=== PATIENT | male | born 1980 | race American Indian/Alaskan Native ===

== ENCOUNTER 2023-05-07 13:27 | Emergency (ER) | payer MEDICAID ==
[~2023-05-07] VITALS: Ht 180.3 cm; Wt 81.6 kg
[2023-05-07 13:29] VITALS: BP 131/79; PULSE 74; RESP 16; TEMP 97.7; O2SAT 97
--- NOTE | 2023-05-07 14:35 | NUR ---
Enedina, substance abuse coordinator at bedside.
[2023-05-07] MEDS ORDERED: BUPR1FIL3 SL ×2 (14:37→14:49)
--- NOTE | 2023-05-07 14:37 | NUR ---
Met with patient in regards to Suboxone. Patient has been clean for 9 months, using Suboxone and moved up here and needs to establish with provider. Meagan will write RX for a week and I gave patient a card to call [facility] to continue Suboxone. If patient can't get in within that time I told him to come back to ER. Patient has my card to call me with any questions.
[2023-05-07] MEDS ORDERED: GABA800T11 PO (14:51)
[2023-05-07] MEDS ORDERED: DIVA500T9 PO (14:51)
[2023-05-07] MEDS ORDERED: FLUO40CA10 PO (14:51)
== END 2023-05-07 15:02 | disposition home or self-care (01) ==
LOC: ER 13:28
DX: F11.10 Opioid abuse, uncomplicated (principal); Z76.0 Encounter for issue of repeat prescription
CPT/HCPCS: 99281

== ENCOUNTER 2023-06-17 14:53 | Emergency (ER) | payer MEDICAID ==
[~2023-06-17] VITALS: Ht 172.7 cm; Wt 85.2 kg
[~2023-06-17 14:53] MED LIST: FLUO40CA10 PO; GABA800T11 PO
[2023-06-17] MEDS ORDERED: BUPR1FIL3 SL (16:10)
[2023-06-17 16:22] VITALS: BP 123/91; PULSE 66; RESP 17; TEMP 98.2; O2SAT 100
== END 2023-06-17 17:11 | disposition home or self-care (01) ==
LOC: ER 14:54
DX: F11.90 Opioid use, unspecified, uncomplicated (principal); R11.2 Nausea with vomiting, unspecified; Z76.0 Encounter for issue of repeat prescription; F19.239 Other psychoactive substance dependence with withdrawal, unspecified; Z79.899 Other long term (current) drug therapy
CPT/HCPCS: 99281; 99283